=== PATIENT | male | born 1950 | race Caucasian/White ===

== ENCOUNTER 2021-06-04 08:29 | Observation (INO) ==
[2021-06-04] MEDS ORDERED: Melatonin 3 MG TABLET PO PRN (10:14)
[2021-06-04] MEDS ORDERED: Ondansetron 4 MG/2 ML VIAL IVP PRN (10:14)
[2021-06-04] MEDS ORDERED: *HR* HYDROcodone/Acet 5/325 mg TABLET PO PRN (10:14)
[2021-06-04] MEDS ORDERED: Naloxone 0.4 MG/ML INJ IVP PRN (10:14)
[2021-06-04] MEDS ORDERED: Acetaminophen 325 MG TABLET PO PRN (10:14)
[2021-06-04] MEDS ORDERED: *HR* Heparin 5,000 UNIT/ML VIAL IVP PRN ×2 (10:15)
[2021-06-04] MEDS ORDERED: Heparin 25,000 UNIT/250 ML 25,000 UNIT/250 ML IV.SOLN IVC SCH (10:15)
[2021-06-04] MEDS ORDERED: Perflutren Lipid Microsphere 1.3 ML in 0.9 % Sodium Chloride 8.7 ML IVP PRN (10:41)
[2021-06-04] MEDS ORDERED: Dextrose Gel 15 GM/37.5 ML TUBE PO PRN ×2 (10:47)
[2021-06-04] MEDS ORDERED: *HR* Dextrose 50 % in Water (Syg) 50 ML SYRINGE IVP PRN (10:47)
[2021-06-04] MEDS ORDERED: D5% in Water 1,000 ML IVC PRN (10:47)
[2021-06-04] MEDS: Insulin LISPRO 300 UNITS/3 ML VIAL SUBQ SCH ×3 (11:31→17:55)
[2021-06-04] MEDS ORDERED: *HR* FentaNYL (PF) 100 MCG/2 ML VIAL ONE (14:18)
[2021-06-04] MEDS ORDERED: *HR* Heparin 10,000 UNIT/10 ML VIAL ONE ×2 (14:19→15:13)
[2021-06-04] MEDS ORDERED: Nitroglycerin 1,000 MCG/5 ML VIAL IV ONE (14:19)
[2021-06-04] MEDS ORDERED: *HR* Midazolam HCl 2 MG/2 ML VIAL ONE (14:19)
[2021-06-04] MEDS ORDERED: ISOVUE-370 200 ML INFUS..BTL ONE (14:19)
[2021-06-04] MEDS ORDERED: Heparin 1,000 UNITS/500 mL 500 ML ONE (14:19)
[2021-06-04] MEDS ORDERED: 0.9 % Sodium Chloride 1,000 ML ONE (14:19)
[2021-06-04] MEDS ORDERED: *HR* Ticagrelor 90 MG TABLET ONE (15:16)
[2021-06-04] MEDS ORDERED: Tirofiban 5 MG/100 mL 5 MG/100 ML VIAL IV ONE (15:16)
[2021-06-04] MEDS: carvediloL 6.25 MG TABLET PO SCH (16:46)
[2021-06-04] MEDS ORDERED: Insulin DETEMIR 100 UNIT/ML X5UNITS SUBQ SCH (21:00)
[2021-06-04] MEDS ORDERED: Insulin LISPRO 300 UNITS/3 ML VIAL SUBQ SCH (21:00)
[2021-06-04] MEDS ORDERED: cloNIDine HCL 0.1 MG TABLET PO SCH (21:00)
[2021-06-04] MEDS: *HR* Ticagrelor 90 MG TABLET PO SCH (21:06)
[2021-06-05 01:48] LABS: Basophils % 0.1 %; Eosinophils # 0.3 K/mcL (0.0-0.6); Eosinophils % 3.7 %; Hematocrit 42.1 % (37.5-50.1); Hemoglobin 14.6 g/dL (12.9-16.9); Immature Granulocytes % 0.3 % (0-4); Lymphocytes # 2.8 K/mcL (0.6-4.6); Lymphocytes % 38.6 %; Mean Corpuscular HGB Conc 34.7 g/dL (31.6-35.5); Mean Corpuscular Hemoglobin 32.2 pg (28.0-33.3); Mean Corpuscular Volume 92.9 fL (83.0-100.0); Monocytes # 1.1 K/mcL (0.0-1.3); Neutrophils # 3.1 K/mcL (1.6-8.9); Platelet Count 242 K/mcL (140-400); Red Blood Count 4.53 M/mcL (4.19-5.50); Red Cell Distribution Width 12.2 % (11.5-14.5); Segmented Neutrophils % 42.3 %; White Blood Count 7.2 K/mcL (4.3-11.1)
[2021-06-05 01:59] LABS: INR 1.1; Prothrombin Time 11.8 Seconds (9.4-12.1)
[2021-06-05 02:05] LABS: BUN/Creatinine Ratio 17 (6-26); Blood Urea Nitrogen 15 mg/dL (8-23); Calcium 8.4 mg/dL (8.6-10.3); Carbon Dioxide 25 mEq/L (23-29); Chloride 106 mEq/L (98-107); Chol/HDL Ratio 3.9 (0-4.9); Cholesterol 122 mg/dL (< 200); Glucose 129 mg/dL (70-105); HDL Cholesterol 31 mg/dL (40-59); LDL Cholesterol,Calculated 36 mg/dL (< 100); Magnesium 1.9 mg/dL (1.6-2.6); Osmolality,Calculated 289 (280-300); Potassium 3.4 mEq/L (3.5-5.1); Sodium 138 mEq/L (136-145); Triglycerides 273 mg/dL (< 150); eGFR For African Americans > 60 (> 60); eGFR For Non-African Americans > 60 (> 60)
[2021-06-05] MEDS: Insulin LISPRO 300 UNITS/3 ML VIAL SUBQ SCH ×2 (07:21→11:17)
[2021-06-05] MEDS: *HR* Ticagrelor 90 MG TABLET PO SCH (08:08)
[2021-06-05] MEDS: carvediloL 6.25 MG TABLET PO SCH (08:08)
[2021-06-05] MEDS ORDERED: Fluticasone Propionate Nasal 50 MCG/SPRAY BOTTLE NS SCH (09:00)
[2021-06-05] MEDS ORDERED: Aspirin 81 MG TAB.CHEW PO SCH ×2 (09:00)
[2021-06-05] MEDS ORDERED: levoFLOXacin 750 MG/150 ML 750 MG/150 ML BAG IVPB SCH (09:00)
[2021-06-05 11:01] VITALS: BP 155/71; PULSE 78; TEMP 98.3; O2SAT 94
[2021-06-05] MEDS ORDERED: Nitroglycerin 0.4 MG TAB.SUBL SL PRN (12:19)
[2021-06-05] MEDS ORDERED: lisinopriL 20 MG TABLET PO SCH (12:30)
[2021-06-05] MEDS ORDERED: carvediloL 6.25 MG TABLET PO SCH (17:00)
== END 2021-06-05 13:00 | disposition home or self-care (01) ==
LOC: 3BNU
PROVIDERS: ADMIT Internal Medicine; ATTEND Internal Medicine